=== PATIENT | male | born 2000 | race Hispanic/Latino ===

== ENCOUNTER 2022-11-18 21:45 | Emergency (ER) | payer BC, OTHER ==
[2022-11-18] MEDS ORDERED: Ondansetron ODT 4 MG TAB ONE (22:11)
== END 2022-11-18 23:17 | disposition home or self-care (01) ==
LOC: BURERS 21:45
DX: B34.9 Viral infection, unspecified (principal)
CPT/HCPCS: 87804; 99283; Q0162